=== PATIENT | female | born 1980 | race Caucasian/White ===

== ENCOUNTER 2016-12-13 00:52 | Emergency (ER) | payer MEDICAID ==
[~2016-12-13] VITALS: Ht 162.6 cm; Wt 65.8 kg
[2016-12-13 01:00] VITALS: BP 140/90
--- NOTE | 2016-12-13 01:05 | NUR ---
PATIENT AMBULATED TO ER BED 7.
--- NOTE | 2016-12-13 01:15 | NUR ---
PATIENT PRESENTS TO ED WITH ABSCESS ON HER HEAD FOR A WEEK . PT STATES IT STARTS WITH PIMPLE, DENIES N/V/D; SKIN IS PINK/WARM/DRY; AAOX4 WITH EVEN AND STEADY GAIT; LUNGS CLEAR BL; HR EVEN AND REGULAR; PT DENIES ANY FEVER, CP, SOB, OR COUGH AT THIS TIME; PATIENT STATES PAIN OF 9/10/HEAD AT THIS TIME; PATIENT POSITIONED FOR COMFORT; HOB ELEVATED; BEDRAILS UP X2; BED DOWN. PT VERBALIZED I WEAR HUT AT MY JOB,DR. CRUZ AT BEDSIDE AT THIS TIME.
--- NOTE | 2016-12-13 01:20 | NUR ---
PATIENT BEING EVALUATED BY DR. CRUZ.
[2016-12-13] MEDS ORDERED: LIDOCAINE 1% 500 MG/50 ML VIAL INJ ONE (01:25)
[2016-12-13] MEDS ORDERED: LIDOCAINE 1% ED 50 ML ONE (01:28)
--- NOTE | 2016-12-13 01:28 | NUR ---
PT AAO, FAMILY AT , VITAL SIGN STABLE.
--- NOTE | 2016-12-13 01:45 | NUR ---
DR. CRUZ DID I AND D ON LEFT FORehead
[2016-12-13] MEDS ORDERED: oxyCODONE/APAP 5/325 MG 1 TAB TAB PO ONE (01:50)
--- NOTE | 2016-12-13 02:23 | NUR ---
[facility] in [facility] - 12/13/16 at 0223 by [email or web address] RELAYED TO DR. CRUZ RESULT OF URINE DIPSTICK
[2016-12-13 02:32] VITALS: BP 117/74
--- NOTE | 2016-12-13 02:34 | NUR ---
Patient discharged with v/s stable. Written and verbal after care instructions given and explained. Patient alert, oriented and verbalized understanding of instructions. Ambulatory with steady gait. All questions addressed prior to discharge. ID band removed. Patient advised to follow up with PMD. Rx of IBUPROFEN CLINDAMYCIN given. Patient educated on indication of medication including possible reaction and side effects. Opportunity to ask questions provided and answered.ENCOURAGED HAND HYGIENE AND PT AGREED WITH IT
== END 2016-12-13 02:34 | disposition home or self-care (01) ==
LOC: MED 00:52
DX: L03.211 Cellulitis of face (principal); F17.210 Nicotine dependence, cigarettes, uncomplicated; Z88.8 Allergy status to other drugs, medicaments and biological substances; F12.10 Cannabis abuse, uncomplicated
CPT/HCPCS: 10060; 81002; 81025; 99283; J2001

== ENCOUNTER 2016-12-14 00:10 | Emergency (ER) | payer MEDICAID ==
[~2016-12-14] VITALS: Ht 162.6 cm; Wt 65.8 kg
[2016-12-14 00:20] VITALS: BP 112/74
[2016-12-14 00:32] VITALS: BP 112/74
--- NOTE | 2016-12-14 00:33 | NUR ---
PT TAKEN TO BED 8
--- NOTE | 2016-12-14 00:34 | NUR ---
PATIENT PRESENTS TO ED FOR WOUND CHECK ON HER HEAD. LEFT EYE AND LEFT SIDE OF NECK SWOLLEN. PT SEEN IN ER YESTERDAY, UNABLE TO GET RX FOR ABX. PT DENIES N/V/D; AAOX4 WITH EVEN AND STEADY GAIT; LUNGS CLEAR BL; HR EVEN AND REGULAR; PT DENIES ANY FEVER, CP, SOB, OR COUGH AT THIS TIME; PATIENT STATES PAIN OF 9/10 AT THIS TIME; VSS; PATIENT POSITIONED FOR COMFORT; HOB ELEVATED; BEDRAILS UP X2; BED DOWN. ER MD MADE AWARE OF PT STATUS.
--- NOTE | 2016-12-14 00:41 | NUR ---
Dr. Be evaluating patient at bedside.
--- NOTE | 2016-12-14 01:27 | NUR ---
PIV AND LABS DONE. PT TOLERATED WELL.
--- NOTE | 2016-12-14 01:29 | NUR ---
PT TO CT VIA WC IN STABLE CONDITION.
[2016-12-14 01:39] LABS: APPEARANCE,URINE HAZY (CLEAR); BILIRUBIN,URINE 1+ (NEGATIVE); BLOOD, URINE NEGATIVE (NEGATIVE); COLOR,URINE YELLOW (YELLOW); LEUKOCYTE ESTERASE ,URINE NEGATIVE (NEGATIVE); NITRITE, URINE NEGATIVE (NEGATIVE); PH,URINE 5.5 (5.0-9.0); PROTEIN,URINE TRACE (NEGATIVE); UGLUCOSE NEGATIVE (NEGATIVE); UROBILINOGEN,URINE 0.2 EU/dL (0.2 - 1)
[2016-12-14 01:41] LABS: BASOPHILS # (AUTO) 0.4 K/uL (0.00-0.22); BASOPHILS % (AUTO) 3.2 % (0.0-2.0); EOSINOPHILS # (AUTO) 0.3 K/uL (0-0.4); EOSINOPHILS % (AUTO) 2.2 % (0.0-4.0); HEMATOCRIT 42.4 % (36-48); LYMPHOCYTES # (AUTO) 1.2 K/uL (2.5-16.5); LYMPHOCYTES % (AUTO) 10.1 % (20.5-51.1); MEAN CORPUSCULAR HEMOGLOBIN 27 pg (27-31); MEAN CORPUSCULAR HGB CONC 33 g/dL (33-37); MEAN CORPUSCULAR VOLUME 83 fL (80-94); MONOCYTES # (AUTO) 0.5 K/uL (0.8-1.0); MONOCYTES % (AUTO) 4.1 % (1.7-9.3); NEUTROPHILS # (AUTO) 9.6 K/uL (1.8-7.7); NEUTROPHILS % (AUTO) 80.4 % (42.2-75.2); PLATELET COUNT (AUTO) 242 K/uL (140-450); RED BLOOD CELL COUNT(AUTO) 5.11 MIL/uL (4.20-5.40); RED CELL DISTRIBUTION WIDTH 12.7 % (11.6-13.7)
--- NOTE | 2016-12-14 01:46 | NUR ---
PT RETURNED FROM CT VIA WC IN STABLE CONDITION
[2016-12-14 01:50] LABS: ALBUMIN 3.7 g/dL (3.4-5.0); CALCIUM 9.1 mg/dL (8.5-10.1); CARBON DIOXIDE 29.3 mmol/L (21-32); CREATININE 0.8 mg/dL (0.6-1.3); POTASSIUM 4.3 mmol/L (3.5-5.1); TOTAL BILIRUBIN 0.6 mg/dL (0.0-1.0); TOTAL PROTEIN, SERUM 9.1 g/dL (6.4-8.2)
[2016-12-14 01:51] LABS: LACTIC ACID 0.9 mmol/L (0.4-2.0)
--- NOTE | 2016-12-14 02:10 | NUR ---
PT NOT AT BEDSIDE, STATED SHE WAS TELLING HER WHAT WAS GOING ON AND HAS NOT RETURNED. DR CRUZ AND CN MADE AWARE.
[2016-12-14 02:14] LABS: BACTERIA,URINE 2+ /HPF (None Seen); ICTOTEST NEGATIVE (NEGATIVE); MUCUS,URINE 4+ /LPF (None Seen); RBC,URINE 0-5 (RARE) /HPF (0-5); WBC,URINE 0-5 (RARE) /HPF (0-5)
--- NOTE | 2016-12-14 03:00 | NUR ---
CALLED PH # ON FILE FOR PT [phone], NO ANSWER. TALKED WITH DR CRUZ. PT HAS NOT RETURNED TO THE ER AND IS CONSIDERED ELOPED AT THIS TIME. IF PT RETURNS, WILL NEED TO BE CHECKED BACKED IN A NEW PT. ECTOR SALAS ALSO NOTIFIED SINCE PT ELOPED WITH AND IV -SALINE LOCK IN LEFT AC.
--- NOTE | 2016-12-14 03:01 | NUR ---
PATIENT ELOPED FROM FACILITY. DISCHARGE INSTRUCTIONS NOT GIVEN TO PATIENT. DR. CRUZ NOTIFIED.
--- NOTE | 2016-12-16 08:34 | NUR ---
blood culture report reviewed patient given prescription for clindamycin she eloped from facility on last visit and is not at given phone number.
== END 2016-12-14 03:01 | disposition left against medical advice (07) ==
LOC: MED 00:10
DX: S00.01XA Abrasion of scalp, initial encounter (principal); L03.213 Periorbital cellulitis; F15.20 Other stimulant dependence, uncomplicated; X58.XXXA Exposure to other specified factors, initial encounter; Y93.89 Activity, other specified; Y92.89 Other specified places as the place of occurrence of the external cause; Y99.8 Other external cause status; Z88.8 Allergy status to other drugs, medicaments and biological substances
CPT/HCPCS: 36415; 70450; 70480; 80053; 81001; 81002; 81025; 83605; 85025; 87040; 87086; 99285

== ENCOUNTER 2016-12-15 09:13 | Emergency (ER) | payer MEDICAID ==
[~2016-12-15] VITALS: Ht 165.1 cm; Wt 71.8 kg
[2016-12-15 09:15] VITALS: BP 103/68
--- NOTE | 2016-12-15 09:25 | NUR ---
Patient ambulated to bed 7. RN evaluating patient at bedside.
[2016-12-15 09:26] VITALS: BP 103/68
--- NOTE | 2016-12-15 09:30 | NUR ---
PATIENT PRESENTS TO ED WITH C/O OS SWELLING SURROUNDING ORBIT;SWELLING IRRITATION SCALP X 1 WK;PT HAS WOUND ON RT FOREHEAD;DENIES N/V/D; SKIN IS PINK/WARM/DRY; AAOX4 WITH EVEN AND STEADY GAIT; LUNGS CLEAR BL; HR EVEN AND REGULAR; PT DENIES ANY FEVER, CP, SOB, OR COUGH AT THIS TIME; PATIENT STATES PAIN OF 6/10 AT THIS TIME; PATIENT POSITIONED FOR COMFORT; HOB ELEVATED; BEDRAILS UP X2; ALL MONITORS IN PLACED.
--- NOTE | 2016-12-15 10:05 | NUR ---
PT REMOVED HER GOWN;PT STATES "I THINK YOU GOT ME CONFUSED I WAS JUS T HERE TO SEE THE RESULTS OF MY BLOOD AND CT SCAN,I GOT TO GO TO WORK"EXPLAINED TO PT THAT SHE NEEDS TO WAIT FOR THE DR SO THAT DR CAN EXPLAINED THE RESULTS TO HER;TALKED TO CHARGE NURSE;CONVINCED PT TO STAY;
--- NOTE | 2016-12-15 10:31 | NUR ---
PATIENT ELOPED FROM FACILITY. DISCHARGE INSTRUCTIONS NOT GIVEN TO PATIENT. DR. GONZALEZ NOTIFIED.
== END 2016-12-15 10:31 | disposition left against medical advice (07) ==
LOC: MED 09:13
DX: L03.213 Periorbital cellulitis (principal); Z53.21 Procedure and treatment not carried out due to patient leaving prior to being seen by health care provider

== ENCOUNTER 2017-02-07 00:27 | Emergency (ER) | payer MEDICAID ==
[~2017-02-07] VITALS: Ht 162.6 cm; Wt 68.0 kg
[2017-02-07 00:30] VITALS: BP 132/86
--- NOTE | 2017-02-07 01:02 | NUR ---
AMBULATED TO ER OF1
[2017-02-07 01:35] VITALS: BP 123/67
--- NOTE | 2017-02-07 01:35 | NUR ---
Patient discharged with v/s stable. Written and verbal after care instructions given and explained. Patient alert, oriented and verbalized understanding of instructions. Ambulatory with steady gait. All questions addressed prior to discharge. ID band removed. Patient advised to follow up with PMD. Rx of Clindamycin given. Patient educated on indication of medication including possible reaction and side effects. Opportunity to ask questions provided and answered.
== END 2017-02-07 01:35 | disposition home or self-care (01) ==
LOC: MED 00:27
DX: Z76.0 Encounter for issue of repeat prescription (principal); L03.811 Cellulitis of head [any part, except face]; R03.0 Elevated blood-pressure reading, without diagnosis of hypertension; F17.210 Nicotine dependence, cigarettes, uncomplicated; F12.10 Cannabis abuse, uncomplicated
CPT/HCPCS: 99283